=== PATIENT | female | born 1950 | race Caucasian/White ===

== ENCOUNTER 2016-07-04 11:47 | Emergency (ER) | payer MEDICARE, OTHER | END 2016-07-04 14:11 | disposition home or self-care (01) | DX: S09.90XA Unspecified injury of head, initial encounter (principal); W01.0XXA Fall on same level from slipping, tripping and stumbling without subsequent striking against object, initial encounter; R03.0 Elevated blood-pressure reading, without diagnosis of hypertension; Z98.1 Arthrodesis status; J45.909 Unspecified asthma, uncomplicated ==

== ENCOUNTER 2017-08-12 13:07 | Emergency (ER) | payer MEDICARE ==
--- NOTE | 2017-08-12 13:44 | ED Physician Documentation ---
History of Present Illness - Stated complaint Stated Complaint: BILAT HIP PX - Chief complaint Chief Complaint: General - History obtained from History obtained from: Patient - History of Present Illness Timing: Other (She had a recent diagnosis of right-sided breast cancer with a lumpectomy and positive nodes. At that time she stopped estrogen. Ever since then she has had right greater than left pelvic pain, she points basically at the inguinal ligaments on both sides that is worse with walking and bending. 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 - Present Medications Home Medications: Ambulatory Orders Medication Instructions Recorded Confirmed DULoxetine [Cymbalta] 20 mg DAILY 08/12/17 08/12/17 Meloxicam [Mobic] 7.5 mg PO BIDWM PRN #15 tablet 08/12/17 - Allergies Allergies/Adverse Reactions: Allergies Allergy/AdvReac Type Severity Reaction Status Date / Time acetaminophen [From Tylenol] Allergy Nausea Verified 08/06/15 08:08 Penicillins Allergy Unknown Verified 08/06/15 08:08 avagard Allergy Unknown Uncoded 08/06/15 08:08 - Social History Does the pt smoke?: No Smoking Status: Never smoker Does the pt drink ETOH?: No Does the pt have substance abuse?: No - Immunizations Immunizations are current?: Yes PD ED PE NORMAL - Vitals Vital signs reviewed: Yes - General General: Alert and oriented X 3, No acute distress - Respiratory Respiratory: No respiratory distress, Clear bilaterally - Abdomen Abdomen: Normal bowel sounds, Soft, Non tender - Back Back: No spinal TTP - Extremities Extremities: Other (There is no midline lumbar spinal tenderness, she is tender focally over the anterior pubic bones on the right and ASIS on the right. She has pain with flexion of the hip on the right, but not with internal or external rotation. The patient has equal and normal Achilles and patellar reflexes bilaterally. Normal sensation in all areas of the legs. Patient denies saddle anesthesia. Normal strength in flexion-extension at the ankles, knees, and flexion of the hips.) - Neuro Neuro: Alert and oriented X 3, Normal speech Results - Vitals Vitals: Vital Signs - 24 hr 08/12/17 08/12/17 08/12/17 13:15 13:58 18:06 Temperature 36.9 C 37.8 C H Heart Rate 93 81 84 Respiratory 18 15 20 Rate Blood Pressure 121/66 122/63 141/77 H O2 Saturation 100 99 100 Oxygen O2 Source Room air - Labs Labs: Laboratory Tests 08/12/17 08/12/17 14:45 14:45 WBC 12.2 H RBC 4.03 L Hgb 12.0 Hct 36.7 L MCV 91.1 MCH 29.8 MCHC 32.7 RDW 12.6 Plt Count 418 MPV 8.1 Neut # (Auto) 8.8 H Lymph # (Auto) 2.2 [place] # (Auto) 1.0 Eos # (Auto) 0.1 Baso # (Auto) 0.1 Absolute Nucleated RBC 0.00 Nucleated RBC % 0.0 Sodium 139 Potassium 3.3 L Chloride 105 Carbon Dioxide 26 Anion Gap 8.0 BUN 19 Creatinine 0.6 Estimated GFR (MDRD) 100 Glucose 97 Calcium 8.6 Total Bilirubin 0.6 AST 15 ALT 18 Alkaline Phosphatase 91 Total Protein 7.8 Albumin 3.4 Globulin 4.4 H Albumin/Globulin Ratio 0.8 L Lipase 38 - Rads (name of study) Pelvic XR Radiology: EMP read contemporaneously (Neg) Pelvic sono Radiology: EMP read contemporaneously (normal) Pelvic MR Radiology: EMP read contemporaneously (Greater trochanteric bursitis and bilateral hip chondromalacia.) PD MEDICAL DECISION MAKING - ED course ED course: 66-year-old woman with history of breast cancer presents with pelvic pain which seems to be bony from the right hip/pelvis. X-rays are negative and this was followed by MRI showing mild greater trochanteric bursitis on the right and bilateral hip chondromalacia. - Sepsis Event Vital Signs: Vital Signs - 24 hr 18 18 08/12/17 13:15 13:58 18:06 Temperature 36.9 C 37.8 C H Heart Rate 93 81 84 Respiratory 18 15 20 Rate Blood Pressure 121/66 122/63 141/77 H O2 Saturation 100 99 100 Oxygen O2 Source Room air Departure - Departure Disposition: 01 Home, Self Care Clinical Impression: Pelvic pain Trochanteric bursitis Qualifiers: Laterality: right Qualified Code(s): M70.61 - Trochanteric bursitis, right hip Breast cancer Qualifiers: Breast location: unspecified site of breast Estrogen receptor status: unspecified Patient sex: female Laterality: right Qualified Code(s): C50.911 - Malignant neoplasm of unspecified site of right female breast Condition: Good Record reviewed to determine appropriate education?: Yes Instructions: ED Bursitis Follow-Up: [facility] [Provider Group] Prescriptions: Meloxicam [Mobic] 7.5 mg PO BIDWM PRN #15 tablet PRN Reason: Pain Discharge Date/Time: 08/12/17 18:06
[2017-08-12 14:56] LABS: BASOPHILS # (AUTO) 0.1 10^3/uL (0.0-0.1); BASOPHILS % (AUTO) 1.1 %; EOSINOPHILS # (AUTO) 0.1 10^3/uL (0.0-0.7); EOSINOPHILS % (AUTO) 0.7 %; LYMPHOCYTES # (AUTO) 2.2 10^3/uL (1.5-3.5); LYMPHOCYTES % (AUTO) 18.3 %; MEAN CORPUSCULAR HEMOGLOBIN 29.8 pg (27.0-31.0); MEAN CORPUSCULAR HGB CONC 32.7 g/dL (32.0-36.0); MEAN CORPUSCULAR VOLUME 91.1 fL (81.0-99.0); MEAN PLATELET VOLUME 8.1 fL (7.9-10.8); MONOCYTES % (AUTO) 7.9 %; NEUTROPHILS # (AUTO) 8.8 10^3/uL (1.5-6.6); PLT - PLATELET COUNT 418 10^3/uL (130-450); RED BLOOD COUNT 4.03 10^6/uL (4.20-5.40); RED CELL DISTRIBUTION WIDTH 12.6 % (12.0-15.0); WHITE BLOOD COUNT 12.2 x10^3/uL (4.8-10.8)
[2017-08-12 15:10] LABS: ALBUMIN 3.4 g/dL (3.2-5.5); ALBUMIN/GLOBULIN RATIO 0.8 (1.0-2.2); BILIRUBIN,TOTAL 0.6 mg/dL (0.2-1.0); CALCIUM 8.6 mg/dL (8.5-10.3); CREATININE 0.6 mg/dL (0.4-1.0); TOTAL PROTEIN 7.8 g/dL (6.7-8.2)
--- NOTE | 2017-08-12 16:10 | XRAY Report ---
Procedure Date: 08/12/2017 Accession Number: [id number] / [id number] Procedure: XR - Pelvis 3 View CPT Code: FULL RESULT: EXAM: PELVIS RADIOGRAPHY EXAM DATE: 08/12/2017 02:29 PM. CLINICAL HISTORY: R pelvic pain. No known injury. COMPARISON: None. TECHNIQUE: 3 views. FINDINGS: Bones: Normal. No fracture or bone lesion. Joints: The visualized hip, pubis symphysis, and sacroiliac joints are preserved. No subluxation. Incompletely visualized left convex lumbar scoliosis. Soft Tissues: Normal. No soft tissue swelling. Umbilical piercing is noted. IMPRESSION: Negative pelvis films without findings to explain right-sided pain. [facility]
--- NOTE | 2017-08-12 17:20 | MRI Report ---
Procedure Date: 08/12/2017 Accession Number: [id number] / [id number] Procedure: MRI - Pelvis W/O CPT Code: FULL RESULT: EXAM: MRI PELVIS WITHOUT CONTRAST EXAM DATE: 08/12/2017 04:42 PM. CLINICAL HISTORY: Pelvic pain, brca. Right-sided pain. COMPARISON: Radiographs today. TECHNIQUE: Multiplanar, multisequence T1-weighted and fluid-sensitive sequences of the pelvis and bilateral hips without contrast. Other: None. FINDINGS: Bones: No fractures or subluxations. No marrow edema or bone lesions. Lower Lumbar Spine: Unremarkable. Sacroiliac Joints: No effusion or sacroiliitis. Right Hip: No acetabular retroversion. Femoral head-neck offset is within normal limits. No effusion. Mild generalized cartilage thinning. Minimal fluid/edema posterolateral to the femoral greater trochanter. Left Hip: No acetabular retroversion. Femoral head-neck offset is within normal limits. No effusion. Mild generalized cartilage thinning. Symphysis Pubis: Unremarkable. Musculature: No edema or fatty atrophy. Pelvic Cavity: The visualized bowel and bladder are unremarkable. No lymphadenopathy. Uterus appears to be surgically absent. No adnexal masses are identified. No free fluid in the pelvis. Other: The visualized sciatic nerves are unremarkable. No bursitis. The subcutaneous tissues are unremarkable. IMPRESSION: 1. Minimal right femoral greater trochanteric bursitis. 2. Mild bilateral hip chondromalacia. 3. Otherwise negative MRI of the pelvis/bilateral hips. [facility] MUSCULOSKELETAL RADIOLOGY SECTION
--- NOTE | 2017-08-12 18:04 | Ultrasound Report ---
Procedure Date: 08/12/2017 Accession Number: [id number] / [id number] Procedure: US - Pelvic w/Transvag+Doppler Comp CPT Code: FULL RESULT: EXAM: PELVIC ULTRASOUND EXAM DATE: 08/12/2017 05:51 PM. CLINICAL HISTORY: Pelvic pain. COMPARISON: None. TECHNIQUE: Realtime transabdominal pelvic scan performed to identify the uterus and adnexa and as an overview of other pelvic structures, followed by transvaginal scan to provide greater detail of the uterus and adnexa, with static image documentation. FINDINGS: Uterus: Surgically absent Right Ovary: 1.8 x 0.8 x 1.3 cm, volume 1 cc. Normal echotexture and blood flow. Left Ovary: 2.1 x 0.9 x 1.3 cm, volume 1 cc. Normal echotexture and blood flow. Free Fluid: None. Other: None. IMPRESSION: 1. The uterus is surgically absent. 2. No significant adnexal abnormalities are seen. The ovaries are normal in size and vascularity. [facility]
[2017-08-12 18:08] VITALS: BP 141/77
== END 2017-08-12 18:06 | disposition home or self-care (01) ==
LOC: ED 13:07
DX: M70.61 Trochanteric bursitis, right hip (principal); C50.911 Malignant neoplasm of unspecified site of right female breast; R10.2 Pelvic and perineal pain
CPT/HCPCS: 36415; 72190; 72195; 76830; 76856; 80053; 83690; 85025; 93975; 99283; 99284

== ENCOUNTER 2017-12-22 11:12 | Outpatient (CLI) | payer MEDICARE ==
[2017-12-22 13:33] LABS: HB2 TOTAL 12.4 g/dL; HEMOGLOBIN A1C 0.5 g/dL; HEMOGLOBIN A1C % 5.8 % (4.6-6.2)
[2017-12-23 10:31] LABS: HEPATITIS C ANTIBODY NON-REACTIVE (NON-REACTIVE)
[2017-12-23 12:56] LABS: HEPATITIS B SURFACE ANTIGEN NON-REACTIVE (NON-REACTIVE)
[2017-12-23 13:47] LABS: HIV AG/AB 4TH GEN NON-REACTIVE (NON-REACTIVE)
== END 2017-12-22 11:13 | disposition home or self-care (01) ==
LOC: LAB.F 11:12
PROVIDERS: ATTEND Nurse Practitioner Family
DX: E78.1 Pure hyperglyceridemia (principal); M31.6 Other giant cell arteritis; E78.5 Hyperlipidemia, unspecified; R51 Headache; R53.83 Other fatigue; Z79.52 Long term (current) use of systemic steroids
CPT/HCPCS: 36415; 81599; 83036; 85651; 86140; 86317; 86803; 87340; G0475; 87389

== ENCOUNTER 2018-03-18 12:56 | Emergency (ER) | payer MEDICARE ==
[2018-03-18] MEDS ORDERED: SODIUM CHLORIDE 0.9% 1,000 ML IV ONE (13:33)
[2018-03-18] MEDS ORDERED: HYDROmorphone 1 MG/ML CARPUJECT IVP STA ×2 (13:33→14:24)
[2018-03-18] MEDS ORDERED: KETOROLAC 30 MG/ML VIAL IVP STA (13:33)
[2018-03-18] MEDS ORDERED: ONDANSETRON 4 MG/2 ML VIAL IVP STA (13:35)
--- NOTE | 2018-03-18 13:48 | ED Physician Documentation ---
PD HPI ABD PAIN - Stated complaint Stated Complaint: LEFT SIDE PX/VOMITING - Chief complaint Chief Complaint: Abd Pain - History obtained from History obtained from: Patient - History of Present Illness Timing - onset: Today Timing - details: Abrupt onset Severity Comments: severe Quality: Cramping, Sharp, Stabbing Location: Other (left flank) Radiation: Other (LUQ) Improved by: No: Eating, Vomiting Worsened by: Moving Associated symptoms: Nausea Similar symptoms before: No diagnosis Recently seen: Not recently seen Review of Systems Constitutional: denies: Fever Eyes: denies: Discharge Ears: denies: Ear pain Nose: denies: Congestion Throat: denies: Sore throat Cardiac: denies: Chest pain / pressure Respiratory: denies: Cough GI: reports: Abdominal Pain, Nausea : denies: Dysuria, Hematuria Skin: denies: Rash Musculoskeletal: denies: Neck pain Neurologic: denies: Generalized weakness PD PAST MEDICAL HISTORY - Past Medical History Respiratory: Asthma Musculoskeletal: Chronic back pain - Past Surgical History Past Surgical History: Yes Ortho: Other /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 - Present Medications Home Medications: Ambulatory Orders Medication Instructions Recorded Confirmed Letrozole 2.5 mg PO DAILY 03/18/18 03/18/18 Omeprazole 20 mg PO DAILY 03/18/18 03/18/18 predniSONE [Prednisone] 45 mg PO DAILY 03/18/18 03/18/18 - Allergies Allergies/Adverse Reactions: Allergies Allergy/AdvReac Type Severity Reaction Status Date / Time acetaminophen [From Tylenol] Allergy Nausea Verified 03/18/18 13:18 Penicillins Allergy Unknown Verified 03/18/18 13:18 adhesive tape AdvReac Rash Verified 03/18/18 13:18 avagard Allergy Anaphylaxis Uncoded 03/18/18 13:18 - Social History Does the pt smoke?: No Smoking Status: Never smoker Does the pt drink ETOH?: No Does the pt have substance abuse?: No - Immunizations Immunizations are current?: Yes PD ED PE NORMAL - General General: Alert and oriented X 3, No acute distress - HEENT HEENT: Atraumatic, PERRL, EOMI, Ears normal - Neck Neck: Supple, no meningeal sign - Cardiac Cardiac: RRR, Strong equal pulses - Respiratory Respiratory: No respiratory distress, Clear bilaterally - Abdomen Abdomen: Soft, Non tender, Non distended, Other (left flank pain) - Derm Derm: Normal color - Extremities Extremities: No deformity - Neuro Neuro: Alert and oriented X 3, Normal speech - Psych Psych: Normal mood PD ED PE EXPANDED - General General: In Pain, In distress Results - Vitals Vitals: Vital Signs - 24 hr 03/18/18 13:14 Temperature 36.8 C Heart Rate 96 Respiratory 16 Rate Blood Pressure 162/95 H O2 Saturation 100 Oxygen O2 Source Room air - Labs Labs: Laboratory Tests 03/18/18 03/18/18 03/18/18 13:40 13:40 14:36 WBC 11.1 H RBC 4.77 Hgb 14.4 Hct 42.6 MCV 89.4 MCH 30.1 MCHC 33.7 RDW 16.1 H Plt Count 326 MPV 7.9 Neut # (Auto) Not Reportable Lymph # (Auto) Not Reportable [place] # (Auto) Not Reportable Eos # (Auto) Not Reportable Baso # (Auto) Not Reportable Absolute Nucleated RBC Not Reportable Total Counted 100 Band Neuts % (Manual) 0 Abnorm Lymph % (Manual) 0 Nucleated RBC % Not Reportable Neutrophils # (Manual) 9.0 H Lymphocytes # (Manual) 1.4 L Monocytes # (Manual) 0.6 Eosinophils # (Manual) 0.1 Basophils # (Manual) 0.0 Differential Comment MANUAL DIFFERENTIAL Platelet Estimate NORMAL (130-450,000) Platelet Morphology NORMAL APPEARANCE RBC Morph Micro Appear NORMAL APPEARANCE Sodium 138 Potassium 3.2 L Chloride 102 Carbon Dioxide 26 Anion Gap 10.0 BUN 24 H Creatinine 0.6 Estimated GFR (MDRD) 100 Glucose 117 H Calcium 9.4 Total Bilirubin 1.5 H AST 24 ALT 25 Alkaline Phosphatase 49 Total Protein 7.7 Albumin 4.7 Globulin 3.0 Albumin/Globulin Ratio 1.6 Lipase 40 Urine Color YELLOW Urine Clarity CLEAR Urine pH 7.0 Ur Specific [place] 1.020 Urine Protein TRACE Urine Glucose (UA) NEGATIVE Urine Ketones 15 H Urine Occult Blood NEGATIVE Urine Nitrite NEGATIVE Urine Bilirubin NEGATIVE Urine Urobilinogen 0.2 (NORMAL) Ur Leukocyte Esterase NEGATIVE Ur Microscopic Review NOT INDICATED Urine Culture Comments NOT INDICATED - Rads (name of study) CT KUB Radiology: Final report received, See rad report (1. No urolithiasis or hydronephrosis. 2. No localizing acute inflammatory process or other CT abnormality to explain flank pain. 3. Scoliotic curvature of the spine with degenerative disk disease. 4. Benign-appearing left adrenal lipid-containing adenoma. ) PD MEDICAL DECISION MAKING - ED course ED course: The patient's workup does not reveal a clear etiology for the source of her symptoms. On reevaluation the patient is resting comfortably And appears appropriate for discharge home. I discussed with her the incidental finding seen on CT scan. I discussed the incidental findings with Dr. Freeman the thoracic surgeon who agrees to follow the patient up for the Bochdalek hernia. I advised returning to the emergency department immediately for any worsening or any concerns Departure - Departure Disposition: 01 Home, Self Care Clinical Impression: Acute flank pain, Bochdalek hernia Adrenal adenoma Qualifiers: Laterality: unspecified laterality Qualified Code(s): D35.00 - Benign neoplasm of unspecified adrenal gland Condition: Good Instructions: ED Flank Pain Uncertain Cause Follow-Up: Tammy Freeman MD [Physician No Access] - (Please call to schedule an appointment with either Dr. Cid or Dr. Wall for further Evaluation of the finding seen on CT scan today) Linda Urias PA [Primary Care Provider] - Within 1 week Comments: Please return to the emergency department for any worsening or any concerns
[2018-03-18 13:54] LABS: BASOPHILS % (AUTO) 0.8 %; EOSINOPHILS % (AUTO) 0.2 %; HGB - HEMOGLOBIN 14.4 g/dL (12.0-16.0); LYMPHOCYTES % (AUTO) 12.7 %; MEAN CORPUSCULAR HEMOGLOBIN 30.1 pg (27.0-31.0); MEAN CORPUSCULAR HGB CONC 33.7 g/dL (32.0-36.0); MEAN CORPUSCULAR VOLUME 89.4 fL (81.0-99.0); MEAN PLATELET VOLUME 7.9 fL (7.9-10.8); MONOCYTES % (AUTO) 7.7 %; NEUTROPHILS % (AUTO) 78.6 %; PLT - PLATELET COUNT 326 10^3/uL (130-450); RED BLOOD COUNT 4.77 10^6/uL (4.20-5.40); RED CELL DISTRIBUTION WIDTH 16.1 % (12.0-15.0); WHITE BLOOD COUNT 11.1 x10^3/uL (4.8-10.8)
[2018-03-18 13:56] LABS: ABNORMAL LYMPHS % (MANUAL) 0 %; BAND NEUTROPHILS % (MANUAL) 0 %
[2018-03-18 14:09] LABS: ALBUMIN 4.7 g/dL (3.2-5.5); ALBUMIN/GLOBULIN RATIO 1.6 (1.0-2.2); BILIRUBIN,TOTAL 1.5 mg/dL (0.2-1.0); CALCIUM 9.4 mg/dL (8.5-10.3); CREATININE 0.6 mg/dL (0.4-1.0); TOTAL PROTEIN 7.7 g/dL (6.7-8.2)
[2018-03-18 14:19] LABS: EOSINOPHILS # (MANUAL) 0.1 10^3/uL (0-0.7); LYMPHOCYTES # (MANUAL) 1.4 10^3/uL (1.5-3.5); LYMPHOCYTES % (MANUAL) 13 %; MONOCYTES # (MANUAL) 0.6 10^3/uL (0.0-1.0); NEUTROPHILS % (MANUAL) 81 %
[2018-03-18 14:20] LABS: PLATELET ESTIMATE, MANUAL NORMAL (130-450,000) (NORMAL); PLATELET MORPHOLOGY NORMAL APPEARANCE (NORMAL); RBC MORPHOLOGY (MULTIPLE) NORMAL APPEARANCE (NORMAL)
[2018-03-18 14:21] LABS: DIFFERENTIAL COMMENT MANUAL DIFFERENTIAL
[2018-03-18 14:50] LABS: BILIRUBIN,URINE NEGATIVE (NEGATIVE); GLUCOSE, URINE (UA) NEGATIVE (NEGATIVE); KETONES,URINE (UA) 15 mg/dL (NEGATIVE); LEUKOCYTE ESTERASE, URINE NEGATIVE (NEGATIVE); NITRITE,URINE NEGATIVE (NEGATIVE); OCCULT BLOOD,URINE NEGATIVE (NEGATIVE); PROTEIN,URINE TRACE mg/dL (NEGATIVE); UROBILINOGEN,URINE 0.2 (NORMAL) E.U./dL (NORMAL)
[2018-03-18 14:52] LABS: CLARITY,URINE CLEAR (CLEAR)
--- NOTE | 2018-03-18 15:49 | CT Report ---
Reason: left flank pain Procedure Date: 03/18/2018 Accession Number: [id number] / [id number] Procedure: CT - KUB CPT Code: FULL RESULT: EXAM: CT ABDOMEN AND PELVIS (CT KUB) EXAM DATE: 03/18/2018 03:15 PM. CLINICAL HISTORY: Left flank pain. COMPARISONS: PELVIS W/O 08/12/2017 4:10 PM. TECHNIQUE: Routine axial helical CT imaging was performed through the abdomen and pelvis without IV contrast. Reconstructions: Coronal and sagittal. In accordance with CT protocol optimization, one or more of the following dose reduction techniques were utilized for this exam: automated exposure control, adjustment of mA and/or KV based on patient size, or use of iterative reconstructive technique. FINDINGS: Lung Bases: There is a homogeneous fat density structure in the posterior inferior right chest which has the appearance of a hernia, probably Bochdalek hernia. Lungs bases appear clear. No pleural effusion. Right Kidney/Ureter: No stones, hydronephrosis, or hydroureter. No perinephric fat stranding. Left Kidney/Ureter: No stones, hydronephrosis, or hydroureter. No perinephric fat stranding. Other Solid Organs: Noncontrast appearance of the liver, gallbladder, spleen, and pancreas appear unremarkable. There is an ovoid left adrenal nodule measuring 24 x 15 mm and density of -6 HU consistent with adenoma. Right adrenal gland appears normal. Gallbladder/Bile Ducts: Unremarkable. Peritoneal Cavity: The stomach and small bowel appear normal in caliber. The appendix appears normal. There is stool present throughout the right colon. No focal colonic transition zone or wall thickening. No free fluid or extraintestinal gas. Pelvic Organs: Urinary bladder is only partially fluid-filled but otherwise unremarkable. Uterus not visualized. Vasculature: There is mild to moderate atherosclerotic vascular calcification without aneurysm. Other: No lytic or destructive bone lesion. There is degenerative disease of the lumbar spine with 23 degrees of apex left curvature between L1 and L4. IMPRESSION: 1. No urolithiasis or hydronephrosis. 2. No localizing acute inflammatory process or other CT abnormality to explain flank pain. 3. Scoliotic curvature of the spine with degenerative disk disease. 4. Benign-appearing left adrenal lipid-containing adenoma. [facility]
[2018-03-18] MEDS ORDERED: oxyCODONE 5 MG TABLET PO STA (16:46)
[2018-03-18] MEDS ORDERED: diazePAM 5 MG TABLET PO STA (16:46)
[2018-03-18 17:17] VITALS: BP 150/88
== END 2018-03-18 17:10 | disposition home or self-care (01) ==
LOC: ED 12:56
DX: R10.32 Left lower quadrant pain (principal); Q79.0 Congenital diaphragmatic hernia; D35.00 Benign neoplasm of unspecified adrenal gland
CPT/HCPCS: 36415; 74176; 80053; 81003; 83690; 85025; 96361; 96374; 96375; 99283; A9270; J1170; 81001; 87086

== ENCOUNTER 2018-03-20 15:02 | Outpatient (CLI) | payer MEDICARE | END 2018-03-20 15:03 | disposition home or self-care (01) | LOC: LAB 15:02 | PROVIDERS: ATTEND Internal Medicine Rheumatology | DX: M31.6 Other giant cell arteritis (principal) | CPT/HCPCS: 36415; 85651; 86140 ==

== ENCOUNTER 2018-05-06 15:53 | Outpatient (CLI) | payer MEDICARE ==
--- NOTE | 2018-05-07 03:57 | Ultrasound Report ---
Reason: PAIN IN RIGHT THIGH Procedure Date: 05/06/2018 Accession Number: [id number] / [id number] Procedure: US - Duplex Ext Veins Right CPT Code: FULL RESULT: EXAM: RIGHT LOWER EXTREMITY VENOUS ULTRASOUND EXAM DATE: 05/06/2018 05:08 PM. CLINICAL HISTORY: PAIN IN RIGHT THIGH. COMPARISON: None. TECHNIQUE: Real-time sonographic vascular imaging was performed by the commodity broker through the lower extremity utilizing both color-flow and Doppler spectral analysis. Multiple applications sales representative static images were saved for review. FINDINGS: Common Femoral Vein (CFV): Normal. CFV-GSV Junction: Normal. Profunda Femoral Vein (PFV): Normal. Femoral Vein (FV) Prox: Normal. Femoral Vein (FV) Mid: Normal. Femoral Vein (FV) Dist: Normal. Popliteal Vein: Normal. Posterior Tibial Veins: Normal. Peroneal Veins: Normal. Other: None. IMPRESSION: No evidence for deep venous thrombosis. [facility]
== END 2018-05-06 15:54 | disposition home or self-care (01) ==
LOC: DI 15:53
PROVIDERS: ATTEND Nurse Practitioner Family
DX: M79.651 Pain in right thigh (principal)

== ENCOUNTER 2019-03-26 11:15 | Outpatient (CLI) | payer MEDICARE | END 2019-03-26 11:16 | disposition home or self-care (01) | LOC: LAB 11:15 | PROVIDERS: ATTEND Internal Medicine Rheumatology | DX: M31.6 Other giant cell arteritis (principal) | CPT/HCPCS: 36415; 85651; 86140 ==

== ENCOUNTER 2019-04-26 14:32 | Emergency (ER) | payer MEDICARE ==
--- NOTE | 2019-04-26 15:15 | XRAY Report ---
Reason: CHEST PAIN Procedure Date: 04/26/2019 Accession Number: [id number] / [id number] Procedure: XR - Chest 2 View X-Ray CPT Code: 73030 Final Report FULL RESULT: EXAM: CHEST RADIOGRAPHY EXAM DATE: 04/26/2019 02:58 PM. CLINICAL HISTORY: CHEST PAIN. COMPARISON: XR CHEST PA AND LAT 02/26/2007 12:39 PM. TECHNIQUE: 2 views. FINDINGS: Lungs/Pleura: No focal opacities evident. No pleural effusion. No pneumothorax. Normal volumes. Mediastinum: There is moderate tortuosity of the aorta. The heart size is normal. The trachea is midline. Other: There is scoliotic curvature of the spine. There is an old fracture of the posterior left 11th rib. IMPRESSION: Negative for an acute cardiopulmonary abnormality. [facility]
[2019-04-26 15:24] LABS: BASOPHILS % (AUTO) 0.2 %; HGB - HEMOGLOBIN 14.1 g/dL (12.0-16.0); LYMPHOCYTES % (AUTO) 8.9 %; MEAN CORPUSCULAR HEMOGLOBIN 29.8 pg (27.0-31.0); MEAN CORPUSCULAR HGB CONC 32.6 g/dL (32.0-36.0); MEAN CORPUSCULAR VOLUME 91.5 fL (81.0-99.0); MEAN PLATELET VOLUME 10.2 fL (7.9-10.8); MONOCYTES # (AUTO) 0.5 10^3/uL (0.0-1.0); MONOCYTES % (AUTO) 4.5 %; NEUTROPHILS % (AUTO) 86.1 %; PLT - PLATELET COUNT 382 10^3/uL (130-450); RED BLOOD COUNT 4.73 10^6/uL (4.20-5.40); RED CELL DISTRIBUTION WIDTH 13.8 % (12.0-15.0); WHITE BLOOD COUNT 11.7 x10^3/uL (4.8-10.8)
[2019-04-26 15:49] LABS: ALBUMIN 4.7 g/dL (3.2-5.5); ALBUMIN/GLOBULIN RATIO 1.5 (1.0-2.2); BILIRUBIN,TOTAL 0.8 mg/dL (0.2-1.0); CALCIUM 9.7 mg/dL (8.5-10.3); CREATININE 0.8 mg/dL (0.4-1.0); TOTAL PROTEIN 7.8 g/dL (6.7-8.2)
--- NOTE | 2019-04-26 16:32 | ED Physician Documentation ---
History of Present Illness - Stated complaint Stated Complaint: CHEST TIGHT/EKG ABNORM - Chief complaint Chief Complaint: Cardiac - History obtained from History obtained from: Patient - History of Present Illness Timing: How many weeks ago (2) - Additonal information Additional information: Patient comes emergency department complaining that she feels as though her blood pressure is up and her heart is racing. Patient states these episodes have been happening for the last couple of weeks, and that she has never been diagnosed with high blood pressure previously. She states that she is in remission from breast cancer and takes a hormone suppressant for this. She also has temporal arteritis, and takes prednisone for that. She states that she has not had any chest pain or shortness of breath, and otherwise feels fairly good. She states she went to the walk-in clinic today and they told her to come over here because they noticed ST elevation in lead III on her EKG. Patient states she has no history of cardiac issues.No nausea or vomiting. No diaphoresis or lightheadedness. No shortness of breath. Review of Systems Ten Systems: 10 systems reviewed and negative Constitutional: reports: Reviewed and negative Eyes: reports: Reviewed and negative Ears: reports: Reviewed and negative Nose: reports: Reviewed and negative Throat: reports: Reviewed and negative Cardiac: reports: Reviewed and negative Respiratory: reports: Reviewed and negative GI: reports: Reviewed and negative : reports: Reviewed and negative Skin: reports: Reviewed and negative Musculoskeletal: reports: Reviewed and negative Neurologic: reports: Reviewed and negative Psychiatric: reports: Reviewed and negative Endocrine: reports: Reviewed and negative Immunocompromised: reports: Reviewed and negative PD PAST MEDICAL HISTORY - Past Medical History Respiratory: Asthma Musculoskeletal: Chronic back pain - Past Surgical History Past Surgical History: Yes 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 - Present Medications Home Medications: Ambulatory Orders Medication Instructions Recorded Confirmed Letrozole 2.5 mg PO DAILY 03/18/18 03/18/18 Omeprazole 20 mg PO DAILY 03/18/18 03/18/18 Ondansetron Odt [Zofran] 4 mg TL Q6H PRN #30 tablet 03/18/18 predniSONE [Prednisone] 45 mg PO DAILY 03/18/18 03/18/18 Metoprolol Tartrate 25 mg PO BID 30 Days #60 tablet 04/26/19 - Allergies Allergies/Adverse Reactions: Allergies Allergy/AdvReac Type Severity Reaction Status Date / Time acetaminophen [From Tylenol] Allergy Nausea Verified 03/18/18 13:18 Penicillins Allergy Unknown Verified 03/18/18 13:18 adhesive tape AdvReac Rash Verified 03/18/18 13:18 avagard Allergy Anaphylaxis Uncoded 03/18/18 13:18 - Social History Does the pt smoke?: No Smoking Status: Never smoker Does the pt drink ETOH?: No Does the pt have substance abuse?: No - Immunizations Immunizations are current?: Yes PD ED PE NORMAL - Vitals Vital signs reviewed: Yes - General General: Alert and oriented X 3, No acute distress - HEENT HEENT: PERRL - Neck Neck: Supple, no meningeal sign - Cardiac Cardiac: RRR, No murmur, Other (Mild, intermittent tachycardia.) - Respiratory Respiratory: No respiratory distress, Clear bilaterally - Abdomen Abdomen: Soft, Non tender, Non distended - Derm Derm: Warm and dry - Extremities Extremities: No deformity - Neuro Neuro: Alert and oriented X 3 - Psych Psych: Normal mood, Normal affect Results - Vitals Vitals: Vital Signs - 24 hr 04/26/19 04/26/19 14:35 16:58 Temperature 37.4 C 36.9 C Heart Rate 107 H 101 H Respiratory 18 15 Rate Blood Pressure 177/102 H 160/94 H O2 Saturation 99 98 Oxygen O2 Source Room air - EKG (time done) 1442 Rate: Rate (enter#) (115) Rhythm: Sinus tachycardia [place]: RAD (Borderline) Intervals: Normal VT QRS: LVH Ischemia: Normal ST segments Compare to prior EKG: Unchanged from prior EKG - Labs Labs: Laboratory Tests 04/26/19 04/26/19 04/26/19 15:20 15:20 15:20 WBC 11.7 H RBC 4.73 Hgb 14.1 Hct 43.3 MCV 91.5 MCH 29.8 MCHC 32.6 RDW 13.8 Plt Count 382 MPV 10.2 Neut # (Auto) 10.0 H Lymph # (Auto) 1.0 L [place] # (Auto) 0.5 Eos # (Auto) 0.0 Baso # (Auto) 0.0 Absolute Nucleated RBC 0.00 Nucleated RBC % 0.0 Sodium 140 Potassium 4.0 Chloride 105 Carbon Dioxide 20 L Anion Gap 15.0 H BUN 22 H Creatinine 0.8 Estimated GFR (MDRD) 72 L Glucose 133 H Calcium 9.7 Total Bilirubin 0.8 AST 26 ALT 26 Alkaline Phosphatase 62 Troponin I High Sens 5.5 Total Protein 7.8 Albumin 4.7 Globulin 3.1 Albumin/Globulin Ratio 1.5 Lipase 41 TSH 04/26/19 15:20 WBC RBC Hgb Hct MCV MCH MCHC RDW Plt Count MPV Neut # (Auto) Lymph # (Auto) [place] # (Auto) Eos # (Auto) Baso # (Auto) Absolute Nucleated RBC Nucleated RBC % Sodium Potassium Chloride Carbon Dioxide Anion Gap BUN Creatinine Estimated GFR (MDRD) Glucose Calcium Total Bilirubin AST ALT Alkaline Phosphatase Troponin I High Sens Total Protein Albumin Globulin Albumin/Globulin Ratio Lipase TSH 1.63 PD MEDICAL DECISION MAKING - ED course Complexity details: reviewed old records, reviewed results, re-evaluated patient, considered differential, d/w patient ED course: Patient was worked up with laboratory studies, which were found to be unremarkable.She was moderately hypertensive in the emergency department and mildly tachycardic. The patient was otherwise well well-appearing, And I did not feel that the patient and lead III on the clinic EKG was significant. Additionally, she was not found to have ST elevation anywhere on her EKG that was done here. Patient wasStarted on metoprolol from the emergency department. I have advised her to follow-up with her primary care physician to discuss whether this is a good long-term option for her. We have discussed home management of symptoms, as well as the usual indications for return. Departure - Departure Disposition: 01 Home, Self Care Clinical Impression: Hypertension, Tachycardia Condition: Good Instructions: Hypertension Dc Prescriptions: Metoprolol Tartrate 25 mg PO BID 30 Days #60 tablet Comments: Your labs look good. Your heart rate is mildly elevated, and your blood pressure is moderately elevated.You have been started on a low-dose beta-betsey here in the emergency department, and may continue this at home to help with the symptoms. Please follow-up with your primary care physician to discuss whether this is a good long-term plan for you are not. If you develop chest pain, shortness of breath, or any other concerning symptoms, please return to the emergency department. Discharge Date/Time: 04/26/19 17:04
[2019-04-26] MEDS ORDERED: METOPROLOL TARTRATE 50 MG TABLET PO STA (16:35)
[2019-04-26 16:58] VITALS: BP 160/94
== END 2019-04-26 17:04 | disposition home or self-care (01) ==
LOC: ED 14:32
DX: I10 Essential (primary) hypertension (principal); R00.0 Tachycardia, unspecified
CPT/HCPCS: 36415; 71046; 80053; 83690; 84443; 84484; 85025; 93005; 99283; 99284; A9270

== ENCOUNTER 2019-05-13 13:31 | Outpatient (CLI) | payer MEDICARE ==
--- NOTE | 2019-05-15 10:56 | CT Report ---
Reason: CHEST PAIN Procedure Date: 05/13/2019 Accession Number: [id number] / [id number] Procedure: CT - CHEST WO CPT Code: Final Report FULL RESULT: EXAM: CT CHEST EXAM DATE: 05/13/2019 02:06 PM. CLINICAL HISTORY: Chest pain. Right-sided rib pain. Cough. History of right breast cancer. COMPARISONS: 04/26/2019 and 02/26/2007. TECHNIQUE: Routine helical CT imaging was performed through the chest. IV contrast: None. Reconstructions: Coronal and sagittal. In accordance with CT protocol optimization, one or more of the following dose reduction techniques were utilized for this exam: automated exposure control, adjustment of mA and/or KV based on patient size, or use of iterative reconstructive technique. FINDINGS: Lungs/Pleura: Anterior right apical parenchymal scarring and pleural thickening. Focal right middle lobe Subsolid/ groundglass opacity measuring 22 x 23 mm image 53, series 6. Linear band of scar/atelectasis left lower lobe. Scar/atelectasis right middle lobe and lingula also present. Several ill -defined foci of groundglass opacity are seen in the left upper lobe on images 58-65, series 6. No endobronchial obstruction. No pleural effusions or pneumothorax. Confluent area of parenchymal scar/atelectasis in the left lung base is more prominent. Adjacent trace left pleural effusion versus pleural thickening. Right posterior inferior pleural fatty lesion again seen, stable. Mediastinum: Heart size is normal. Coronary artery calcified plaque. Hiatal hernia. No enlarged mediastinal or hilar lymph nodes. Visualized thyroid gland is heterogeneous. Thoracic aorta is tortuous. No aneurysm. Thoracic aortic atherosclerosis. Bones: Degenerative changes of the thoracic spine. Changes are seen from inferior cervical fusion. Thoracic scoliosis. Sclerosis of the right anterior and lateral first rib is noted. Sclerosis of the second, third and fourth anterior ribs is also noted. No acute fracture is identified, particularly right rib fracture. Visualized Abdomen: Abdominal aorta atherosclerosis. Left adrenal nodule stable measuring 23 mm. Otherwise included portions of the upper abdomen are unremarkable. Other: Postsurgical changes involving the right breast with clips along the right mid superior breast and right axilla lymph node dissection. IMPRESSION: 1. Several scattered foci of groundglass opacity left upper lobe typically infectious/inflammatory in etiology. No areas of dense consolidation. 2. Focal right upper lobe subsolid/groundglass opacity. Due to the above findings, follow-up chest CT in 3-6 months is recommended for reassessment. 3. Focal parenchymal scarring and pleural thickening medial right lung apex and medial left lower lobe with left basilar pleural thickening/trace pleural fluid. Findings appear chronic. 4. Hiatal hernia. 5. Coronary artery and thoracic aortic atherosclerosis. 6. No definitive evidence for acute fracture. RADIA
== END 2019-05-13 13:32 | disposition home or self-care (01) ==
LOC: DI 13:31
PROVIDERS: ATTEND Physician Assistant
DX: R91.8 Other nonspecific abnormal finding of lung field (principal); K44.9 Diaphragmatic hernia without obstruction or gangrene; I70.0 Atherosclerosis of aorta; I25.10 Atherosclerotic heart disease of native coronary artery without angina pectoris; Z85.3 Personal history of malignant neoplasm of breast
CPT/HCPCS: 71250

== ENCOUNTER 2019-05-25 08:00 | Outpatient (CLI) | payer MEDICARE ==
[2019-05-25 17:32] LABS: CHOL/HDL RATIO 4.8 (<4.4); CHOLESTEROL 261 mg/dL; HDL CHOLESTEROL 54 mg/dL; LDL CHOLESTEROL,CALCULATED 150 mg/dL; LDL/HDL RATIO 2.8 (<4.4); VLDL CHOLESTEROL 57 mg/dL
== END 2019-05-25 23:59 | disposition home or self-care (01) ==
LOC: LAB.S 08:00
PROVIDERS: ATTEND Internal Medicine Rheumatology
DX: M31.6 Other giant cell arteritis (principal)
CPT/HCPCS: 36415; 80061; 80074; 80076; 81599; 83721; 85651; 86140; 86480

== ENCOUNTER 2019-05-26 09:48 | Outpatient (CLI) | payer MEDICARE ==
[2019-05-27 11:04] LABS: HEPATITIS A IGM NON-REACTIVE (NON-REACTIVE); HEPATITIS B SURFACE ANTIGEN NON-REACTIVE (NON-REACTIVE); HEPATITIS C ANTIBODY NON-REACTIVE (NON-REACTIVE)
== END 2019-05-26 09:49 | disposition home or self-care (01) ==
LOC: LAB.S 09:48
PROVIDERS: ATTEND Internal Medicine Rheumatology
DX: M31.6 Other giant cell arteritis (principal)
CPT/HCPCS: 80074

== ENCOUNTER 2020-08-15 10:44 | Outpatient (CLI) | payer MEDICARE ==
--- NOTE | 2020-08-15 11:17 | XRAY Report ---
PROCEDURE: Hand 3 View BILAT INDICATIONS: PAIN IN BILAT HAND TECHNIQUE: 3 views of each hand(s) acquired. COMPARISON: None. FINDINGS: Bones: No fractures or dislocations. No suspicious bony lesions. There are arthritic changes bilat erally, severe at the right first carpometacarpal joint and at the second distal interphalangeal join t, moderate at the triscaphe joints bilaterally, right carpometacarpal joint, and mild at intercarpal joints laterally, multiple phalangeal joints. Soft tissues: No suspicious soft tissue calcifications. IMPRESSION: 1. Severe osteoarthritis bilaterally. Reviewed by: Tavo Deleon MD on 08/15/2020 11:16 AM PDT Approved by: Tavo Deleon MD on 08/15/2020 11:16 AM PDT Station ID: [id number]
--- NOTE | 2020-08-15 11:27 | XRAY Report ---
PROCEDURE: Wrist 4 View BILAT INDICATIONS: PAIN IN BILAT HAND TECHNIQUE: 3 views of each wrist were acquired. COMPARISON: None. FINDINGS: Bones: No fractures or dislocations. No suspicious bony lesions. There are [id number] osteo arthritic changes bilaterally, most severe at the first metacarpal joint and triscaphe joints, left g reater than right. Soft tissues: No suspicious soft tissue calcifications. IMPRESSION: [id number] osteoarthritis. Reviewed by: Tavo Deleon MD on 08/15/2020 11:25 AM PDT Approved by: Tavo Deleon MD on 08/15/2020 11:25 AM PDT Station ID: [id number]
== END 2020-08-15 10:45 | disposition home or self-care (01) ==
LOC: DI 10:44
PROVIDERS: ATTEND Nurse Practitioner Family
DX: M19.041 Primary osteoarthritis, right hand (principal); M19.042 Primary osteoarthritis, left hand; M19.032 Primary osteoarthritis, left wrist; M19.031 Primary osteoarthritis, right wrist

== ENCOUNTER 2020-11-12 16:52 | Outpatient (CLI) | payer MEDICARE | END 2020-11-12 16:53 | disposition E | LOC: EMS 16:52 | DX: I46.9 Cardiac arrest, cause unspecified (principal) | CPT/HCPCS: A0425; A0429 ==